=== PATIENT | female | born 1960 | race Asian ===

== ENCOUNTER 2017-08-07 22:16 | Emergency (ER) | payer OTHER ==
[~2017-08-07] VITALS: Ht 142.2 cm; Wt 24.2 kg
[2017-08-07] MEDS ORDERED: ketorolac trometh. 30mg/ml inj. IM ONE (23:10)
[2017-08-07] MEDS ORDERED: CYCL-1 PO (23:11)
[2017-08-07 23:29] VITALS: BP 111/73
== END 2017-08-07 23:30 | disposition home or self-care (01) ==
LOC: ER 22:17
DX: S46.812A Strain of other muscles, fascia and tendons at shoulder and upper arm level, left arm, initial encounter (principal); R07.81 Pleurodynia; V49.59XA Passenger injured in collision with other motor vehicles in traffic accident, initial encounter; Y93.89 Activity, other specified; Y92.488 Other paved roadways as the place of occurrence of the external cause; Y99.8 Other external cause status
CPT/HCPCS: 96372; 99283; J1885